=== PATIENT | male | born 1960 | race Caucasian/White ===

== ENCOUNTER 2020-12-28 11:52 | Emergency (ER) | payer BC, SELFPAY ==
[~2020-12-28] VITALS: Ht 182.9 cm; Wt 99.8 kg
--- NOTE | 2020-12-28 11:52 | NUR ---
BROUGHT IN BY [facility], PLACED IN BED #1 AND TRIAGED. REPORT GIVEN TO DAX
--- NOTE | 2020-12-28 12:08 | NUR ---
Blood collected and sent to lab.
--- NOTE | 2020-12-28 12:08 | NUR ---
Mitali collected and sent to lab.
--- NOTE | 2020-12-28 12:10 | NUR ---
ER at bedside examining patient.
[2020-12-28] MEDS ORDERED: LORazepam 2 MG/ML VIAL ONE ×2 (12:27→14:13)
--- NOTE | 2020-12-28 12:27 | NUR ---
IV WAS INSERTED BY FIRE WITH 20G TO THE LEFT AC. RN OBTAINED ALL LABS DRAW ORDERS AND INSERTED INDWELLING URINARY CATHETER. PT IS THRASHING AROUND AND MD ORDERED ATIVAN.. PT IS CHANGED TO GOWN AND OXYGEN IS IN PLACE WITH NON REBREATHER FACE MASK. RADIOLOGY HAS BEEN CALLED.
[2020-12-28 12:30] VITALS: BP_SYST 148
[2020-12-28] MEDS ORDERED: LORazepam 2 MG/ML VIAL IVP ONE ×2 (12:30→14:15)
[2020-12-28 12:34] LABS: BASOPHILS # (AUTO) 0.2 K/uL (0.0-0.2); BASOPHILS % (AUTO) 1.1 % (0.0-2.0); EOSINOPHILS # (AUTO) 0.1 K/uL (0.0-0.4); EOSINOPHILS % (AUTO) 0.5 % (0.0-4.0); HEMATOCRIT 49.4 % (36-54); HEMOGLOBIN 16.7 g/dL (14.0-18.0); LYMPHOCYTES % (AUTO) 26.5 % (20.5-51.5); MEAN CORPUSCULAR HEMOGLOBIN 32 pg (27-31); MEAN CORPUSCULAR HGB CONC 34 % (32-36); MEAN CORPUSCULAR VOLUME 93 fL (79.0-98.0); MONOCYTES # (AUTO) 0.7 K/uL (0.0-1.0); MONOCYTES % (AUTO) 4.7 % (1.7-9.3); NEUTROPHILS # (AUTO) 10.2 K/uL (1.8-7.7); NEUTROPHILS % (AUTO) 67.2 % (40.0-70.0); PLATELET COUNT (AUTO) 269 K/uL (130-430); RED BLOOD CELL COUNT(AUTO) 5.29 MIL/uL (4.2-6.2); RED CELL DISTRIBUTION WIDTH 13.6 % (9.0-15.0); WHITE BLOOD COUNT (AUTO) 15.1 K/uL (4.8-10.8)
[2020-12-28 12:40] LABS: ANION GAP 30 (5-15); CALCIUM 8.9 mg/dL (8.4-11.0); CHLORIDE 95 mmol/L (98-107); CREATININE 1.96 mg/dL (0.55-1.30); POTASSIUM 3.1 mmol/L (3.5-5.1); SODIUM SERUM 137 mmol/L (136-145); UREA NITROGEN, BLOOD 18 mg/dL (8-21)
[2020-12-28 12:45] LABS: ALANINE AMINOTRANSFERASE 66 U/L (12-78); ALBUMIN 4.4 g/dL (3.4-4.8); ASPARTATE AMINOTRANSFERASE 38 U/L (10-37); TOTAL BILIRUBIN 0.8 mg/dL (0.0-1.0)
--- NOTE | 2020-12-28 12:59 | NUR ---
PT WAS TAKEN TO CT , AND NOW IS BACK. RN AT BEDSIDE AND AND CT WITH PT. PT WILL NOT STAY STILL. CATHETER DRAINING WELL.
[2020-12-28 13:04] LABS: GFR AFRICAN AMERICAN 45 mL/min (>90)
[2020-12-28 13:05] LABS: GLUCOSE 456 mg/dL (70-99)
[2020-12-28 13:06] LABS: BARBITURATE, URINE NEGATIVE (NEG <=200); BENZODIAZEPINE, URINE NEGATIVE (NEG <=150); CANNABINOID, URINE POSITIVE (NEG <=50); COCAINE, URINE NEGATIVE (NEG <=150); METHAMPHETAMINES SCREEN,URINE NEGATIVE (NEG <=500); OPIATE, URINE NEGATIVE (NEG <=100); PHENCYCLIDINE SCREEN,URINE NEGATIVE (NEG <=25); UR TRICYCLIC ANTIDEPRESSANTS NEGATIVE (NEG <=300); URINE AMPHETAMINE NEGATIVE (NEG <=500); URINE METHADONE NEGATIVE (NEG <=200); URINE OXYCODONE SCREEN NEGATIVE (NEG <=100); URINE PROPOXYPHENE SCREEN NEGATIVE (NEG <=300)
[2020-12-28 13:06] LABS: ALCOHOL, BLOOD < 3 mg/dL (<10)
--- NOTE | 2020-12-28 13:08 | NUR ---
PT CONTINUES TO REMOVE ALL HIS LINES AND MONITIORS, RN CONSTANTLY WITH PT AND FIXING AND REAPPLYING.
[2020-12-28] MEDS ORDERED: KETAMINE 30 MG/3 ML SYRINGE IVP ONE (13:15)
[2020-12-28] MEDS ORDERED: niCARdipine 50 MG in D5W 230 ML IV PRN (13:15)
[2020-12-28] MEDS ORDERED: niCARdipine 2.5 MG/ML, 10 ML VIAL (CARDENE) IV ONE (13:39)
--- NOTE | 2020-12-28 13:43 | NUR ---
Dr. Rodriguez, [facility] doc, called back to speak to Dr. Green regarding pt status.
[2020-12-28] MEDS ORDERED: INSULIN REGULAR, HUMAN 10 UNITS/0.1 ML INJ IVP ONE (13:45)
--- NOTE | 2020-12-28 13:49 | NUR ---
RN INCREASED DRIP TO 7.5MG/HR PER MD
--- NOTE | 2020-12-28 13:51 | NUR ---
AT BEDSIDE. MD LOPEZ EXPLAINED THE BRAIN BLEED TO . PT CONTINUES BEING MONITORED CLOSELY.
--- NOTE | 2020-12-28 13:59 | NUR ---
INCREASE NICIDIPINE TO 10MG/HR B/P LOWER AT 184/94
--- NOTE | 2020-12-28 14:11 | NUR ---
TRANSFER NOTE [facility] ACCEPTING: Dr. Rodriguez REPORT: [phone] [facility], stated she will call back with ETA.
--- NOTE | 2020-12-28 14:44 | NUR ---
RN CONTINUES 1 TO 1 WITH PT. PT CONTINUES TO FLAIL IN BED. RN CONSTANTLY RE-APPLYING MONITORING EQUIPMENT. NICARDIPINE CONTINUES TO INFUSE AT 10MG/HR.
--- NOTE | 2020-12-28 14:49 | NUR ---
INCREASE IN nICARDIPINE TO 12.5MG/HR
--- NOTE | 2020-12-28 15:22 | NUR ---
[facility], WITH SUPER[employer] HERE TO P/U PT. PT IS BEING PREPARED TO BE PLACED ON THEIR TRANSPORT GURNEY. REPORT TO ANN MARIE PINEDO, TRANSPORTING.
--- NOTE | 2020-12-28 15:29 | NUR ---
REPORT GIVEN TO ALEXANDRU KERR RN.
[2020-12-28 15:30] VITALS: BP_SYST 125
--- NOTE | 2020-12-28 15:30 | NUR ---
PT TRANSFERRED TO [facility].
== END 2020-12-28 15:30 | disposition short-term general hospital (02) ==
LOC: SED 11:52
DX: I62.9 Nontraumatic intracranial hemorrhage, unspecified (principal); Z20.822 Contact with and (suspected) exposure to COVID-19
CPT/HCPCS: 36415; 36600; 70450; 76376; 80053; 80307; 82009; 82803; 83605; 85025; 87426; 96365; 96366; 96375; 96376; 99291; G0482; J1815; J2060; 93005